=== PATIENT | female | born 1985 | race Caucasian/White ===

== ENCOUNTER 2016-05-20 13:01 | Day surgery (SDC) | payer OTHER ==
[~2016-05-20 13:01] MED LIST: RINGERS SOLUTION,LACTATED 1,000 ML IV PRN
[2016-05-20] MEDS ORDERED: BUPIVACAINE HCL/EPINEPHRINE 50 ML VIAL IJ ONE ×2 (14:30)
[2016-05-20] MEDS ORDERED: oxyCODONE HCL/ACETAMINOPHEN 1 TAB TABLET PO PRN (16:16)
[2016-05-20] MEDS ORDERED: MORPHINE SULFATE 2 MG/ML DISP.SYRIN IV PRN (16:17)
[2016-05-20] MEDS ORDERED: ONDANSETRON HCL/PF 2 MG/ML VIAL IV ONE ×2 (16:37→17:00)
[2016-05-20 17:45] VITALS: BP 107/61
--- NOTE | 2016-05-20 17:59 | OR ---
Operative Report - Dictated Report Narrative: OPERATIVE REPORT DATE OF OPERATION: 05/20/2016 PREOPERATIVE DIAGNOSIS: Umbilical hernia POSTOPERATIVE DIAGNOSIS: 1 cm umbilical hernia containing properitoneal fat OPERATION: Primary tissue repair of umbilical hernia SURGEON: Elier Peter MD ANESTHESIA: Gen. LMA Henry Ascencio CRNA INDICATIONS FOR PROCEDURE: The patient is a 31-year-old female referred by Dr. Olguin. She has an enlarging and increasingly symptomatic nonreducible umbilical hernia. FINDINGS: Herniated properitoneal fat with a 1 cm defect. NARRATIVE OF PROCEDURE: The patient was identified preoperatively and prior to the administration of anesthetic a multidisciplinary timeout was observed. The patient was placed supine, SCDs were applied, and general LMA administered. The patient's abdomen was prepped with Betadine solution and the umbilical area isolated with 4 sterile towels. The remainder the patient was covered with a sterile disposable drape. A transverse supraumbilical skin incision was made dissection was carried into subcutaneous tissue until herniated properitoneal fat was encountered. This was gradually dissected free from the undersurface of the umbilical skin and surrounding subcutaneous tissue down to the fascial defect. The fat could not be reduced through the defect and was therefore serially crossclamped and divided and secured with a 0 chromic tie. The stump could then be reduced into the properitoneum. A primary transverse repair was then effected with 3 interrupted sutures of #1 Vicryl. After receiving a correct sponge needle and instrument count attention was turned to closing the wound. The undersurface of the umbilical skin was tacked to the fascia with interrupted sutures of 4-0 Vicryl. The skin incision was then approximated with a running subcuticular suture of 4-0 Vicryl. The operative site was washed and dried. A dressing of Exofin and a Mepilex border was applied. The operative procedure was terminated at this point. The patient tolerated the anesthetic and procedure well without complication. There was no measurable blood loss. No specimen was submitted due to the obvious benign gross appearance of the fat removed. 0.5% Marcaine with epinephrine was used for local anesthetic infiltration. The patient was transferred to the recovery room awake, extubated, and in stable condition. The patient remained stable throughout a period of postoperative observation. She was able to tolerate PO intake, her pain was controlled with PO Percocet, her dressing remained dry, and she was able to ambulate independently. I shared the operative findings with her and her . She was discharged home with instructions not to lift and not to drive. She is to keep the incision dry for 48 hours but then may shower and change the dressing daily or as needed. She has phone numbers to call if needed for signs of wound infection or hematoma. She was given a prescription for Percocet 5/325 mg #30 1 -2 PO Q4-6hrs prn pain. A return office appointment was made for 1 week. Reviewed and electronically signed
== END 2016-05-20 13:02 | disposition home or self-care (01) ==
LOC: AMB 13:01
PROVIDERS: ATTEND Surgery
PROC: 0WQF0ZZ Repair Abdominal Wall, Open Approach (ICD-10-PCS; principal; 2016-05-20 14:00)
DX: K42.9 Umbilical hernia without obstruction or gangrene (principal); J45.909 Unspecified asthma, uncomplicated; D64.9 Anemia, unspecified; Z68.24 Body mass index [BMI] 24.0-24.9, adult

== ENCOUNTER 2018-07-08 18:00 | Inpatient (IN) ==
[2018-07-09] MEDS ORDERED: RINGER'S SOLUTION,LACTATED 1,000 ML IV ONE (06:22)
[2018-07-09] MEDS ORDERED: OXYTOCIN/DEXTROSE 5%-WATER 30 UNITS/500 ML BAG IV ONE ×2 (06:22→11:55)
[2018-07-09] MEDS ORDERED: DEXTROSE 5%-LACTATED RINGERS 1,000 ML IV PRN (06:22)
[2018-07-09] MEDS ORDERED: ONDANSETRON HCL/PF 2 MG/ML VIAL IV PRN (06:22)
--- NOTE | 2018-07-09 08:39 | HP ---
Chief Complaint - Chief Complaint Date of Service: 07/09/18 Time of Service: 08:29 Chief Complaint: Induction of labor History of Present Illness: 33 yo at 40 2/7 weeks presents to L&D for induction of labor. This complicated by asthma, erythema nodosum, and recent Influenza A. Rh positive Rubella immune GBS negative Medical History (Last Reviewed 07/09/18 @ 08:32 by Edi Olguin DO) Allergy to adhesive tape Rash, itching Asthma Onset Date: ~2002 Hospitalized. Current inhaler prn. Body piercing History of PCOS Incomplete uterovaginal prolapse Onset Date: 05/02/16 Mild intermittent asthma without complication Onset Date: 09/04/15 Seasonal allergies Rhinitis Wears glasses Anemia Onset Date: 02/07/14 w/pregnancies. 02/07/14 & 01/22/16 & 04/06/18 Erythema nodosum Onset Date: ~05/2007 initial episode. 2016 w/ @ 32 wks. Ganglion, joint Onset Date: ~03/2016 Left wrist post Umbilical hernia Onset Date: 02/10/13 [place] teeth extracted Onset Date: ~01/2008 Irregular menses Surgical History: Surgical History (Last Reviewed 07/09/18 @ 08:33 by Edi Olguin DO) History of umbilical hernia repair Onset Date: 05/20/16 [place]-primary tissue repair Family History: Family History (Last Reviewed 07/09/18 @ 08:33 by Edi Olguin DO) Uncle Congenital heart defect x2 uncles. at age 9 wks & 3 yrs. Uncle Hypertension Father Migraines Hypertension GERD (gastroesophageal reflux disease) Laryngeal amyloidosis Inguinal hernia with repair Mother Depression Anxiety Uterine fibroid Uterine polyp Skin cancer Grandfather CAD (coronary artery disease) Hx of CABG PVD (peripheral vascular disease) Abdominal aneurysm Stomach cancer Osteoarthritis TIA (transient ischemic attack) CHF (congestive heart failure) Hernia Grandfather Diabetes Lewy body dementia Grandmother Thyroid disease Polycythemia Grandmother Hypercholesterolemia Vitiligo Anemia Hypothyroidism Hypertension Kidney disease Macular degeneration Colitis Kidney Dialysis Social History: Preferred Language Maldivian Smoking Status Never smoker Abuse History No History of abuse Psych History No pertinent hx (Last Updated 07/08/18 @ 15:17 by Zahraa Ely MD) No Social History Section defined Review Of Systems (GEN) - Review of Systems Generalized/Overall Review: Present: No Symptoms Reported EENTM: Present: No Symptoms Reported Respiratory: Present: Cough, Wheezing Cardiac: Present: No Symptoms Reported Abdominal: Present: No Symptoms Reported Genitourinary: Present: No Symptoms Reported Musculoskeletal: Present: No Symptoms Reported Neurological: Present: No Symptoms Reported Skin: Present: No Symptoms Reported Endocrine: Present: No Symptoms Reported Immunizations: IMMUNIZATION HX Immunizations Up to Date Yes History of Influenza Vaccine No Hx Pneumococcal Vaccination No Allergies/Adverse Reactions: Allergies Allergy/AdvReac Type Severity Reaction Status Date / Time gemifloxacin mesylate Allergy Severe Anaphylaxis Verified 07/08/18 14:38 [From Factive] clarithromycin [From Biaxin] Allergy Intermediate Swelling, Verified 07/08/18 14:38 RASH Sulfa (Sulfonamide Allergy Intermediate Swelling, Verified 07/08/18 14:38 Antibiotics) RASH adhesive tape AdvReac Mild RASH, Verified 07/08/18 14:38 ITCHING Home Medications: HOME MEDICATIONS Vits96/Iron Fum/Folic [ S] 1 tab PO DAILY 04/25/14 [Last Taken 07/08/18 08:00] albuterol sulfate HFA 90 mcg/actuation aerosol inhaler 2 puff IH Q4H PRN #18 g 12/29/17 [Last Taken 07/08/18 21:00] ferrous sulfate 325 mg (65 mg iron) tablet 325 mg PO DAILY #30 tab 04/06/18 [Last Taken 07/08/18 08:00] magnesium 200 mg tablet 400 mg PO DAILY tab 06/08/18 [Last Taken 07/08/18 08:00 ] Albuterol Sulfate 2.5 mg INHALATION Q4H PRN #25 vial.neb 07/01/18 [Last Taken 07/08/18 21:00] Exam - Exam Constitutional: Present: Alert, Oriented x3, Cooperative, No distress ENT Exam: Present: hearing grossly normal Breasts: Present: Exam deferred Respiratory: Present: no respiratory distress, crackles - left base, resolved with deep breathing and coughing, No wheezing Cardiovascular/Chest: Present: normal peripheral pulses, regular rate, rhythm, no edema Abdomen: Present: soft, nontender, no rebound tenderness, other - gravid /Rectal: Present: Other - 4/50/-2 Extremity: Present: non-tender, no calf tenderness, pedal edema - 1+ Skin Exam: Present: normal color, warm/dry, no cyanosis Neurologic: Present: alert, normal mood/affect, oriented x 3 Appearance: Present: appropriate appearance, appropriate insight Eye contact: Present: cooperative, good eye contact Thoughts: Present: normal thought pattern Assessment/Plan - Assessment/Plan (1) Elective induction of labor planned Assessment: Admit for pitocin induction of labor. Epidural PRN. Breathing treatments for asthma as needed. Problem: Acute (2) Asthma affecting in third trimester Problem: Chronic (3) Erythema nodosum Problem: Chronic
[2018-07-09] MEDS ORDERED: ALBUTEROL SULFATE IH PRN (08:40)
[2018-07-09] MEDS ORDERED: ALBUTEROL SULFATE 2.5 MG/0.5 ML VIAL.NEB IH PRN (08:40)
[2018-07-09] MEDS ORDERED: PRENATAL VITS96/IRON FUM/FOLIC 1 TAB TABLET PO SCH (09:00)
[2018-07-09] MEDS ORDERED: MAGNESIUM OXIDE 400 MG TABLET PO SCH (09:00)
[2018-07-09] MEDS ORDERED: FERROUS SULFATE 325 MG TABLET PO SCH (09:00)
[2018-07-09 11:42] LABS: Cocaine Ur Negative (NEGATIVE); Urine Barbiturate Negative (NEGATIVE); Urine Benzodiazepines Negative (NEGATIVE); Urine Opiates Negative (NEGATIVE); Urine PCP Negative (NEGATIVE); Urine THC Negative (NEGATIVE)
[2018-07-09] MEDS ORDERED: SENNOSIDES 8.6 MG TABLET PO PRN (11:55)
[2018-07-09] MEDS ORDERED: BISACODYL 10 MG SUPP.RECT RC PRN (11:55)
[2018-07-09] MEDS ORDERED: GLYCERIN/WITCH HAZEL LEAF 40 APPL BOX TP PRN (11:55)
[2018-07-09] MEDS ORDERED: oxyCODONE HCL/ACETAMINOPHEN 1 TAB TABLET PO PRN ×2 (11:55)
[2018-07-09] MEDS ORDERED: HYDROCORTISONE 30 APPL TUBE TP PRN (11:55)
[2018-07-09] MEDS ORDERED: BENZOCAINE/MENTHOL 81 SPRAY CAN TP PRN (11:55)
--- NOTE | 2018-07-09 12:01 | OR ---
Operative Report - Dictated Report Narrative: Spontaneous vaginal delivery of vigorously crying viable male born at 1140 on 07/09/2019 with Apgars 9 and 9, weighing 3504 grams in SHEREEN position with right hand at face and umbilical cord wrapped tightly around each foot. Cord clamping delayed approximately 1 minute Placenta delivered complete, intact, with three vessel cord Estimated blood loss: less than 50 ml Anesthesia: none Lacerations: Small abrasion of the posterior fourchette with no repair needed History for MU Definition: * The number of deliveries resulting in a live the patient experienced prior to current hospitalization * The previous delivery of live twins or any live multiple gestation is considered one live event. *If primagravida or nulliparous is documented select zero for the number of previous live births. Live Events: 4
[2018-07-09] MEDS: IBUPROFEN 800 MG TABLET PO PRN (19:58)
[2018-07-09] MEDS: DOCUSATE SODIUM 100 MG CAPSULE PO SCH (21:58)
[2018-07-10] MEDS: IBUPROFEN 800 MG TABLET PO PRN ×4 (02:27→21:03)
--- NOTE | 2018-07-10 08:48 | PN ---
Subjective - Date and Time Seen Date: 07/10/18 Time: 08:47 Objective - Vitals Vitals: Last Vital Signs Temp 36.8 C 07/10/18 06:52 Pulse 73 07/10/18 06:52 Resp 18 07/10/18 06:52 BP 104/62 07/10/18 06:52 Pulse Ox 98 07/10/18 06:52 Patient denies complaints. Lochia wnl Abdomen - soft, nontender Uterus - firm, at umbilicus - 1 No calf tenderness Impression: day #1 - s/p spontaneous vaginal delivery. Plan: Continue routine care Assessment/Plan - Problems/Diagnosis (1) Elective induction of labor planned Problem: Acute (2) Asthma affecting in third trimester Problem: Chronic (3) Erythema nodosum Problem: Chronic
[2018-07-10] MEDS: DOCUSATE SODIUM 100 MG CAPSULE PO SCH ×2 (10:44→21:02)
[2018-07-10] MEDS: PRENATAL VITS96/IRON FUM/FOLIC 1 TAB TABLET PO SCH (12:01)
[2018-07-11] MEDS: IBUPROFEN 800 MG TABLET PO PRN ×2 (03:13→09:47)
[2018-07-11 08:43] VITALS: BP 115/61
[2018-07-11] MEDS: PRENATAL VITS96/IRON FUM/FOLIC 1 TAB TABLET PO SCH (09:47)
[2018-07-11] MEDS: DOCUSATE SODIUM 100 MG CAPSULE PO SCH (09:47)
--- NOTE | 2018-07-11 11:42 | PN ---
Subjective - Date and Time Seen Date: 07/11/18 Time: 11:41 Objective - Vitals Vitals: Last Vital Signs Temp 36.9 C 07/11/18 08:30 Pulse 87 07/11/18 08:30 Resp 16 07/11/18 08:30 BP 115/61 07/11/18 08:30 Pulse Ox 99 07/11/18 08:30 Patient having to use her breathing treatments more frequently. Complains of developing running nose. Lochia wnl Abdomen - soft, nontender Uterus - firm, at umbilicus - 2 No calf tenderness Impression: day #2 - s/p spontaneous vaginal delivery. Asthma- worsening. Plan: Routine discharge instructions. Instructed patient to call her primary care physician for possible addition of inhaled steroids. Assessment/Plan - Problems/Diagnosis (1) Elective induction of labor planned Problem: Acute (2) Asthma affecting in third trimester Problem: Chronic (3) Erythema nodosum Problem: Chronic
== END 2018-07-11 12:45 | disposition home or self-care (01) | DRG 807 ==
LOC: OB 07-09 05:52 → MS 07-09 16:36
PROVIDERS: ADMIT Obstetrics & Gynecology; ATTEND Obstetrics & Gynecology
CPT/HCPCS: 59025; 80307